=== PATIENT | female | born 1940 | race Caucasian/White ===

== ENCOUNTER → 2024-06-15 | Outpatient (CLI) | payer OTHER, SELFPAY ==
--- NOTE | 2024-06-15 07:00 | EKG_ITS ---
[facility] Test Date: 2024-06-15 Pat Name: CLARI DUMONT Department: Room: - Gender: Female [employer] Worker: DUSTIN : 1940 Requested By: Micha Quiñones Order Number: [id number] Reading MD: Micha Quiñones Measurements Intervals [place] Rate: 65 P: 24 VA: 182 QRS: 68 QRSD: 97 T: 81 QT: 424 QTc: 443 Interpretive Statements SINUS RHYTHM POSSIBLE LEFT ATRIAL ENLARGEMENT [-0.1mV P WAVE IN V1/V2] LOW QRS VOLTAGE IN PRECORDIAL LEADS [QRS DEFLECTION < 1.0 mV IN CHEST LEADS] PATTERN CONSISTENT WITH PULMONARY DISEASE MODERATE T-WAVE ABNORMALITY, CONSIDER ANTERIOR ISCHEMIA [-0.1+ mV T WAVE IN V3/V4] No previous ECG available for comparison [id number]
[2024-06-15 11:01] VITALS: BMI 29.8
[2024-06-15 12:41] LABS: Prothrombin Time 10.9 Seconds (9.0-12.2)
[2024-06-15 13:13] LABS: Alanine Aminotransferase 12 U/L (10-49); Albumin, Serum 3.9 gm/dL (3.4-4.8); Albumin/Globulin Ratio 1.6 (1.2-2.2); Alkaline Phosphatase 116 U/L (46-116); Anion Gap 9 (7-16); Aspartate Amino Transferase 23 U/L (0-34); BUN/Creatinine Ratio 12 Ratio (12-20); Bilirubin,Total 0.3 mg/dL (0.3-1.2); Blood Urea Nitrogen 22 mg/dL (9-23); Calcium 8.7 mg/dL (8.3-10.6); Calcium (Corrected) 8.8 mg/dL (8.5-10.1); Carbon Dioxide 21.6 mMol/L (20.0-31.0); Chloride 109 mMol/L (98-107); Creatinine (Component) 1.8 mg/dL (0.6-1.3); Estimated Creatinine Clearance 19.4 mL/min (>60); Globulin 2.5 gm/dL (2.3-3.5); Glucose 98 mg/dL (74-106); Osmolality,Calculated 282 (275-295); Potassium 4.8 mMol/L (3.4-5.1); Sodium 140 mMol/L (136-145); Total Protein 6.4 gm/dL (5.7-8.2); eGFR 27 See Note
== END | disposition home or self-care (01) ==
LOC: SLAB 06-19 07:31
PROVIDERS: Referring Provider Otolaryngology; Visit Provider Otolaryngology
DX: H90.3 Sensorineural hearing loss, bilateral (principal)
CPT/HCPCS: 36415; 80053; 85610; 93005; J0690; J2250; J2371; J2405; J2704; J2765; J3010; A9270